=== PATIENT | female | born 1970 | race Caucasian/White ===

== ENCOUNTER 2019-02-22 10:06 | Inpatient (IN) | payer MEDICAID, OTHER ==
[~2019-02-22] VITALS: Ht 170.2 cm; Wt 67.9 kg
[~2019-02-22 10:06] MED LIST: FLUO10TA3 PO; INSU100V31 SQ; METF-445 PO; SIMV-260 PO
[2019-02-22] MEDS ORDERED: LISI-661 PO (10:14)
[2019-02-22] MEDS ORDERED: SODIUM CHLORIDE 0.9% 1,000 ML IV ONE (10:30)
[2019-02-22] MEDS ORDERED: INSULIN REGULAR, HUMAN 100 UNITS/ML IVP ONE (10:30)
[2019-02-22] MEDS ORDERED: ASPIRIN 81 MG CHEWABLE TABLET PO ONE (10:30)
[2019-02-22] MEDS ORDERED: NITROGLYCERIN 2% (1 GM=INCH) PACKET TP ONE (10:30)
[2019-02-22 10:31] LABS: GLUCOSE,POINT OF CARE 493 MG/DL (70-110)
[2019-02-22 11:30] LABS: BASOPHILS % (AUTO) 0.5 % (0.0-2.0); HEMATOCRIT 38.6 % (36-46); HEMOGLOBIN 12.8 g/dL (12.0-16.0); LYMPHOCYTES # (AUTO) 1.3 K/uL (1.0-4.8); LYMPHOCYTES % (AUTO) 20.3 % (22.0-44.0); MEAN CORPUSCULAR HEMOGLOBIN 27.2 pg (26.0-34.0); MEAN CORPUSCULAR HGB CONC 33.2 G/dL (31.0-37.0); MEAN CORPUSCULAR VOLUME 82 fL (80-100); MONOCYTES # (AUTO) 0.4 K/uL (0.1-1.0); NEUTROPHILS # (AUTO) 4.5 K/uL (1.8-7.7); NEUTROPHILS % (AUTO) 72.2 % (40.0-70.0); PLATELET COUNT (AUTO) 247 K/uL (150-450); RED BLOOD CELL COUNT(AUTO) 4.72 MIL/uL (4.00-5.20); RED CELL DISTRIBUTION WIDTH 13.6 % (11.5-14.5)
[2019-02-22 11:38] LABS: ANION GAP 11 mmol/L (8-16); CARBON DIOXIDE 26 mmol/L (22-29); CHLORIDE 98 mmol/L (98-107); CREATININE 1.05 mg/dL (0.60-1.30); GLOMERULAR FILTR. RATE CALC 56 mL/min (>60); GLUCOSE,RANDOM 393 mg/dL (70-110); POTASSIUM 3.6 mmol/L (3.5-5.1); SODIUM SERUM 135 mmol/L (136-145); UREA NITROGEN, BLOOD 26 mg/dL (7-18)
[2019-02-22 11:44] LABS: B-TYPE NATRIURETIC PEPTIDE 78 pg/mL (0-100)
[2019-02-22 11:49] LABS: ALANINE AMINOTRANSFERASE 33 U/L (12-78); ALBUMIN 3.6 g/dL (3.4-5.0); ALKALINE PHOSPHATASE 123 U/L (46-116); ASPARTATE AMINOTRANSFERASE 25 U/L (15-37); BILIRUBIN,TOTAL 0.3 mg/dL (0.1-1.0); HCG,QUANTITATIVE < 1 mIU/mL (0-6); TOTAL PROTEIN, SERUM 7.7 g/dL (6.4-8.2)
[2019-02-22] MEDS ORDERED: ONDANSETRON HCL 4 MG/2 ML VIAL IVP PRN (12:30)
[2019-02-22] MEDS ORDERED: DEXTROSE 50%-WATER 25 GM/50 ML SYRINGE IVP PRN (12:30)
[2019-02-22] MEDS ORDERED: ACETAMINOPHEN 325 MG TABLET PO PRN (12:30)
[2019-02-22 13:51] VITALS: BP 118/76
[2019-02-22 14:56] VITALS: BP 122/82
[2019-02-22] MEDS: INSULIN LISPRO 100 UNITS/ML SQ PRN ×2 (17:54→20:57)
[2019-02-22 19:17] LABS: APPEARANCE,URINE CLOUDY (CLEAR); BILIRUBIN,URINE NEGATIVE (NEGATIVE); GLUCOSE, URINE (UA) >=1000 mg/dL (NEGATIVE); KETONES,URINE NEGATIVE (NEGATIVE); LEUKOCYTE ESTERASE ,URINE LARGE (NEGATIVE); NITRATE,URINE NEGATIVE (NEGATIVE); OCCULT BLOOD,URINE SMALL (NEGATIVE); PROTEIN,URINE POS 1+ (NEGATIVE); UROBILINOGEN,URINE 0.2 mg/dL (<=1.0)
[2019-02-22 19:23] LABS: AMPHET/METH SCREEN,URINE POSITIVE (NEGATIVE); BARBITURATE SCREEN, URINE NEGATIVE (NEGATIVE); BENZODIAZEPINES SCREEN,URINE NEGATIVE (NEGATIVE); CANNABINOID SCREEN,URINE POSITIVE (NEGATIVE); COCAINE SCREEN,URINE NEGATIVE (NEGATIVE); METHADONE SCREEN, URINE NEGATIVE (NEGATIVE); OPIATE SCREEN,URINE NEGATIVE (NEGATIVE)
[2019-02-22 19:25] LABS: PHENCYCLIDINE SCREEN,URINE NEGATIVE (NEGATIVE)
[2019-02-22 19:34] VITALS: BP 145/82
[2019-02-22 20:10] LABS: BACTERIA,URINE Many /HPF (None Seen); SQUAMOUS EPITHELIAL CELL,UR Moderate /LPF (None Seen); WBC,URINE 51-100 /HPF (0-5)
[2019-02-23 00:07] VITALS: BP 111/57
[2019-02-23 05:45] VITALS: BP 138/85
[2019-02-23 05:55] LABS: GLUCOMETER DEV NAME(LOC) 5N.2; GLUCOSE,POINT OF CARE 251 MG/DL (70-110)
[2019-02-23 05:55] LABS: GLUCOMETER DEV NAME(LOC) 5N.2; GLUCOSE,POINT OF CARE 219 MG/DL (70-110)
[2019-02-23 08:06] VITALS: BP 111/66
[2019-02-23] MEDS ORDERED: HydrOXYzine PAMOATE 50 MG CAPSULE PO PRN (10:45)
[2019-02-23] MEDS ORDERED: IPRATROPIUM BROMIDE 0.5 MG/2.5 ML NEB SOLUTION NEB PRN (10:45)
[2019-02-23] MEDS ORDERED: BACLOFEN 10 MG TABLET PO PRN (10:45)
[2019-02-23] MEDS ORDERED: DICYCLOMINE HCL 10 MG CAPSULE PO PRN (10:45)
[2019-02-23] MEDS ORDERED: MAG HYDROX/AL HYDROX/SIMETH ES 30 ML SUSPENSION UDCUP PO PRN (10:45)
[2019-02-23] MEDS ORDERED: MAGNESIUM HYDROXIDE SUSPENSION 30 ML UDCUP PO PRN (10:45)
[2019-02-23] MEDS ORDERED: ONDANSETRON HCL 4 MG/2 ML VIAL IVP PRN (10:45)
[2019-02-23] MEDS ORDERED: LORazepam 1 MG TABLET PO PRN (10:45)
[2019-02-23] MEDS ORDERED: IBUPROFEN 600 MG TABLET PO PRN (10:45)
[2019-02-23] MEDS ORDERED: LOPERAMIDE HCL 2 MG/15 ML SUSPENSION UDCUP PO PRN (10:45)
[2019-02-23] MEDS ORDERED: CloNIDine HCL 0.1 MG TABLET PO PRN (10:45)
[2019-02-23] MEDS ORDERED: ZOLPIDEM TARTRATE 10 MG TABLET PO PRN (10:45)
[2019-02-23] MEDS ORDERED: TraZODone HCL 50 MG TABLET PO PRN (10:45)
[2019-02-23] MEDS ORDERED: ACETAMINOPHEN 325 MG TABLET PO PRN (10:45)
[2019-02-23 11:42] VITALS: BP 109/71
[2019-02-23] MEDS ORDERED: SODIUM CHLORIDE 0.9% 1,000 ML IV ONE (12:02)
[2019-02-23] MEDS: CefTRIAXone 1 GM/DEXTROSE 50 ML IV SCH (12:12)
[2019-02-23] MEDS: HYDROCODONE/ACETAMINOPHEN 5-325 MG TABLET PO PRN ×2 (12:13→20:46)
[2019-02-23] MEDS: PROMETHAZINE HCL 25 MG TABLET PO PRN (12:13)
[2019-02-23] MEDS: NITROGLYCERIN 2% (1 GM=INCH) PACKET TP SCH ×2 (12:13→17:32)
[2019-02-23 15:38] VITALS: BP 113/69
[2019-02-23] MEDS: CARVEDILOL 3.125 MG TABLET PO SCH ×2 (16:14→20:45)
[2019-02-23] MEDS: PHENAZOPYRIDINE HCL 200 MG TABLET PO SCH ×2 (16:14→20:46)
[2019-02-23] MEDS: MetFORMIN HCL 850 MG TABLET PO SCH (17:31)
[2019-02-23 20:29] VITALS: BP 106/54
[2019-02-23] MEDS: DOCUSATE SODIUM 100 MG CAPSULE PO SCH (20:45)
[2019-02-23] MEDS ORDERED: INSULIN REGULAR, HUMAN 100 UNITS/ML SQ SCH (21:00)
[2019-02-24] VITALS (8 sets, daily range): BP systolic 90–128; BP diastolic 50–75
[2019-02-24] MEDS: NITROGLYCERIN 2% (1 GM=INCH) PACKET TP SCH ×5 (00:24→23:35)
[2019-02-24] MEDS: ACETAMINOPHEN 325 MG TABLET PO PRN (06:06)
[2019-02-24 06:07] LABS: CHOL/HDL RATIO 3.9 (3.9-5.7)
[2019-02-24] MEDS: ASPIRIN 81 MG CHEWABLE TABLET PO SCH (08:25)
[2019-02-24] MEDS: CARVEDILOL 3.125 MG TABLET PO SCH ×3 (08:25→20:42)
[2019-02-24] MEDS: MetFORMIN HCL 850 MG TABLET PO SCH ×2 (08:25→18:16)
[2019-02-24] MEDS: DOCUSATE SODIUM 100 MG CAPSULE PO SCH ×2 (08:25→20:42)
[2019-02-24] MEDS: FLUoxetine HCL 10 MG CAPSULE PO SCH (08:25)
[2019-02-24] MEDS: PHENAZOPYRIDINE HCL 200 MG TABLET PO SCH ×3 (08:26→20:42)
[2019-02-24] MEDS: LISINOPRIL 10 MG TABLET PO SCH (08:26)
[2019-02-24] MEDS: SIMVASTATIN 20 MG TABLET PO SCH (08:26)
[2019-02-24] MEDS: CefTRIAXone 1 GM/DEXTROSE 50 ML IV SCH (11:37)
[2019-02-24 11:49] LABS: GLUCOMETER DEV NAME(LOC) 5S.1; GLUCOSE,POINT OF CARE 399 MG/DL (70-110)
[2019-02-24] MEDS: HYDROCODONE/ACETAMINOPHEN 5-325 MG TABLET PO PRN (12:18)
[2019-02-24] MEDS: PROMETHAZINE HCL 25 MG TABLET PO PRN (12:58)
[2019-02-24] MEDS ORDERED: INSULIN LISPRO 100 UNITS/ML SQ PRN (16:45)
[2019-02-24] MEDS ORDERED: DEXTROSE 50%-WATER 25 GM/50 ML SYRINGE IVP PRN ×2 (16:45→18:00)
[2019-02-24] MEDS ORDERED: INSULIN LISPRO 100 UNITS/ML SQ ONE (18:00)
[2019-02-24] MEDS: INSULIN LISPRO 100 UNITS/ML SQ PRN ×2 (18:17→21:25)
[2019-02-24 19:58] LABS: GLUCOMETER DEV NAME(LOC) 5N.2; GLUCOSE,POINT OF CARE 430 MG/DL (70-110)
[2019-02-24] MEDS: INSULIN GLARGINE,HUM.REC.ANLOG 100 UNITS/ML SQ SCH (21:00)
[2019-02-24 21:38] LABS: GLUCOMETER DEV NAME(LOC) 5S.2A; GLUCOSE,POINT OF CARE 442 MG/DL (70-110)
[2019-02-25] MEDS: HYDROCODONE/ACETAMINOPHEN 5-325 MG TABLET PO PRN ×4 (03:26→21:06)
[2019-02-25 03:31] LABS: GLUCOMETER DEV NAME(LOC) 5N.1; GLUCOSE,POINT OF CARE 57 MG/DL (70-110)
[2019-02-25 03:31] LABS: GLUCOMETER DEV NAME(LOC) 5N.1; GLUCOSE,POINT OF CARE 188 MG/DL (70-110)
[2019-02-25 03:31] LABS: GLUCOMETER DEV NAME(LOC) 5N.1; GLUCOSE,POINT OF CARE 212 MG/DL (70-110)
[2019-02-25 05:32] VITALS: BP 111/68
[2019-02-25] MEDS: NITROGLYCERIN 2% (1 GM=INCH) PACKET TP SCH ×3 (05:43→17:18)
[2019-02-25] MEDS: INSULIN LISPRO 100 UNITS/ML SQ PRN ×4 (05:49→21:06)
[2019-02-25 07:32] LABS: BASOPHILS % (AUTO) 0.4 % (0.0-2.0); EOSINOPHILS % (AUTO) 2.1 % (1.0-6.0); HEMATOCRIT 36.4 % (36-46); LYMPHOCYTES # (AUTO) 1.8 K/uL (1.0-4.8); LYMPHOCYTES % (AUTO) 24.7 % (22.0-44.0); MEAN CORPUSCULAR HEMOGLOBIN 27.2 pg (26.0-34.0); MEAN CORPUSCULAR HGB CONC 32.8 G/dL (31.0-37.0); MEAN CORPUSCULAR VOLUME 83 fL (80-100); MONOCYTES # (AUTO) 0.6 K/uL (0.1-1.0); MONOCYTES % (AUTO) 8.6 % (2.0-9.0); NEUTROPHILS # (AUTO) 4.7 K/uL (1.8-7.7); NEUTROPHILS % (AUTO) 64.2 % (40.0-70.0); PLATELET COUNT (AUTO) 238 K/uL (150-450); RED CELL DISTRIBUTION WIDTH 13.6 % (11.5-14.5)
[2019-02-25] MEDS: CARVEDILOL 3.125 MG TABLET PO SCH ×2 (07:44→20:57)
[2019-02-25] MEDS: DOCUSATE SODIUM 100 MG CAPSULE PO SCH ×2 (07:44→20:57)
[2019-02-25] MEDS: PHENAZOPYRIDINE HCL 200 MG TABLET PO SCH ×3 (07:44→20:56)
[2019-02-25] MEDS: FLUoxetine HCL 10 MG CAPSULE PO SCH (07:44)
[2019-02-25] MEDS: ASPIRIN 81 MG CHEWABLE TABLET PO SCH (07:44)
[2019-02-25] MEDS: LISINOPRIL 10 MG TABLET PO SCH (07:45)
[2019-02-25] MEDS: SIMVASTATIN 20 MG TABLET PO SCH (07:45)
[2019-02-25] MEDS: MetFORMIN HCL 850 MG TABLET PO SCH (07:48)
[2019-02-25 07:49] VITALS: BP 108/66
[2019-02-25 08:04] LABS: ALANINE AMINOTRANSFERASE 26 U/L (12-78); ALBUMIN 2.9 g/dL (3.4-5.0); ALKALINE PHOSPHATASE 80 U/L (46-116); ANION GAP 9 mmol/L (8-16); ASPARTATE AMINOTRANSFERASE 32 U/L (15-37); BILIRUBIN,TOTAL 0.3 mg/dL (0.1-1.0); CALCIUM, TOTAL 9.1 mg/dL (8.8-10.5); CARBON DIOXIDE 28 mmol/L (22-29); CHLORIDE 100 mmol/L (98-107); GLOMERULAR FILTR. RATE CALC > 60 mL/min (>60); GLUCOSE,RANDOM 192 mg/dL (70-110); POTASSIUM 3.9 mmol/L (3.5-5.1); SODIUM SERUM 137 mmol/L (136-145); TOTAL PROTEIN, SERUM 6.8 g/dL (6.4-8.2)
[2019-02-25 08:09] LABS: UREA NITROGEN, BLOOD 26 mg/dL (7-18)
[2019-02-25 11:11] VITALS: BP 122/80
[2019-02-25 12:00] VITALS: BP 122/80
[2019-02-25] MEDS: CefoTEtan DISOD 1 GM/DEXTROSE 50 ML IV SCH (12:21)
[2019-02-25] MEDS: MetFORMIN HCL 500 MG TABLET PO SCH (17:03)
[2019-02-25 19:41] VITALS: BP 116/63
[2019-02-25] MEDS: INSULIN GLARGINE,HUM.REC.ANLOG 100 UNITS/ML SQ SCH (21:00)
[2019-02-25 21:11] LABS: GLUCOMETER DEV NAME(LOC) 5N.2; GLUCOSE,POINT OF CARE 246 MG/DL (70-110)
[2019-02-25 21:11] LABS: GLUCOMETER DEV NAME(LOC) 5N.2; GLUCOSE,POINT OF CARE 272 MG/DL (70-110)
[2019-02-26] VITALS (8 sets, daily range): BP systolic 94–128; BP diastolic 58–76
[2019-02-26 00:01] LABS: GLUCOMETER DEV NAME(LOC) 5S.1; GLUCOSE,POINT OF CARE 133 MG/DL (70-110)
[2019-02-26 00:01] LABS: GLUCOMETER DEV NAME(LOC) 5S.1; GLUCOSE,POINT OF CARE 173 MG/DL (70-110)
[2019-02-26 00:01] LABS: GLUCOMETER DEV NAME(LOC) 5N.1; GLUCOSE,POINT OF CARE 148 MG/DL (70-110)
[2019-02-26] MEDS: CefoTEtan DISOD 1 GM/DEXTROSE 50 ML IV SCH ×2 (00:24→12:45)
[2019-02-26] MEDS: MORPHINE SULFATE 2 MG/ML SYRINGE IVP PRN ×4 (01:03→17:12)
[2019-02-26] MEDS: NITROGLYCERIN 2% (1 GM=INCH) PACKET TP SCH ×4 (06:00→17:00)
[2019-02-26] MEDS: INSULIN LISPRO 100 UNITS/ML SQ PRN ×4 (06:35→21:07)
[2019-02-26] MEDS: DOCUSATE SODIUM 100 MG CAPSULE PO SCH ×2 (08:08→20:59)
[2019-02-26] MEDS: CARVEDILOL 3.125 MG TABLET PO SCH ×2 (08:08→21:00)
[2019-02-26] MEDS: SIMVASTATIN 20 MG TABLET PO SCH (08:08)
[2019-02-26] MEDS: PHENAZOPYRIDINE HCL 200 MG TABLET PO SCH ×3 (08:09→21:00)
[2019-02-26] MEDS: FLUoxetine HCL 10 MG CAPSULE PO SCH (08:09)
[2019-02-26] MEDS: ASPIRIN 81 MG CHEWABLE TABLET PO SCH (08:09)
[2019-02-26] MEDS: MetFORMIN HCL 500 MG TABLET PO SCH ×2 (08:09→17:11)
[2019-02-26] MEDS: HYDROCODONE/ACETAMINOPHEN 5-325 MG TABLET PO PRN (10:46)
[2019-02-26] MEDS: LISINOPRIL 10 MG TABLET PO SCH (12:44)
[2019-02-26] MEDS ORDERED: SODIUM CHLORIDE 0.9% 50 ML ONE (12:46)
[2019-02-26] MEDS: ACETAMINOPHEN 325 MG TABLET PO PRN (15:31)
[2019-02-26 19:46] LABS: GLUCOMETER DEV NAME(LOC) 5N.1; GLUCOSE,POINT OF CARE 189 MG/DL (70-110)
[2019-02-26 19:46] LABS: GLUCOMETER DEV NAME(LOC) 5N.1; GLUCOSE,POINT OF CARE 344 MG/DL (70-110)
[2019-02-26 20:20] LABS: GLUCOMETER DEV NAME(LOC) 5S.2A; GLUCOSE,POINT OF CARE 233 MG/DL (70-110)
[2019-02-26] MEDS: INSULIN GLARGINE,HUM.REC.ANLOG 100 UNITS/ML SQ SCH (21:07)
[2019-02-27 00:28] VITALS: BP 90/54
[2019-02-27] MEDS: NITROGLYCERIN 2% (1 GM=INCH) PACKET TP SCH ×3 (00:30→06:00)
[2019-02-27] MEDS: CefoTEtan DISOD 1 GM/DEXTROSE 50 ML IV SCH (00:31)
[2019-02-27 00:54] LABS: GLUCOMETER DEV NAME(LOC) 5S.1; GLUCOSE,POINT OF CARE 226 MG/DL (70-110)
[2019-02-27 00:55] LABS: GLUCOMETER DEV NAME(LOC) 5S.1; GLUCOSE,POINT OF CARE 75 MG/DL (70-110)
[2019-02-27 00:55] LABS: GLUCOMETER DEV NAME(LOC) 5S.1; GLUCOSE,POINT OF CARE 137 MG/DL (70-110)
[2019-02-27] MEDS: HYDROCODONE/ACETAMINOPHEN 5-325 MG TABLET PO PRN (04:26)
[2019-02-27 04:42] VITALS: BP 94/52
[2019-02-27] MEDS ORDERED: CARV3.1262 PO (04:52)
[2019-02-27] MEDS ORDERED: ASPI81TA39 PO (04:53)
[2019-02-27] MEDS ORDERED: FLUO10TA3 PO (04:53)
[2019-02-27] MEDS ORDERED: INSLAN SQ (04:54)
[2019-02-27] MEDS ORDERED: SIMV20TA2 PO (05:03)
[2019-02-27] MEDS ORDERED: AMOX250S73 PO (05:03)
[2019-02-27] MEDS ORDERED: METF-444 PO (05:08)
[2019-02-27] MEDS: INSULIN LISPRO 100 UNITS/ML SQ PRN (06:26)
[2019-02-27] MEDS ORDERED: AMOX1TAB16 PO (08:06)
[2019-02-27] MEDS: LISINOPRIL 10 MG TABLET PO SCH ×2 (08:17→08:39)
[2019-02-27] MEDS: SIMVASTATIN 20 MG TABLET PO SCH (08:18)
[2019-02-27] MEDS: FLUoxetine HCL 10 MG CAPSULE PO SCH (08:18)
[2019-02-27] MEDS: PHENAZOPYRIDINE HCL 200 MG TABLET PO SCH (08:18)
[2019-02-27] MEDS: CARVEDILOL 3.125 MG TABLET PO SCH ×2 (08:18→08:49)
[2019-02-27] MEDS: MetFORMIN HCL 500 MG TABLET PO SCH (08:18)
[2019-02-27] MEDS: DOCUSATE SODIUM 100 MG CAPSULE PO SCH (08:18)
[2019-02-27] MEDS: ASPIRIN 81 MG CHEWABLE TABLET PO SCH (08:18)
[2019-02-27 08:44] VITALS: BP 94/58
[2019-02-27 09:50] LABS: GLUCOMETER DEV NAME(LOC) 5S.1; GLUCOSE,POINT OF CARE 176 MG/DL (70-110)
== END 2019-02-27 09:20 | disposition home or self-care (01) | DRG 690 ==
LOC: EMS 10:08 → 5S 13:05
PROVIDERS: ADMIT Hospitalist; ATTEND Hospitalist
DX: N39.0 Urinary tract infection, site not specified (principal); E44.0 Moderate protein-calorie malnutrition; I10 Essential (primary) hypertension; I25.10 Atherosclerotic heart disease of native coronary artery without angina pectoris; R07.89 Other chest pain; E78.5 Hyperlipidemia, unspecified; F15.90 Other stimulant use, unspecified, uncomplicated; I25.5 Ischemic cardiomyopathy; F19.10 Other psychoactive substance abuse, uncomplicated; E11.65 Type 2 diabetes mellitus with hyperglycemia; Z16.19 Resistance to other specified beta lactam antibiotics; Z95.1 Presence of aortocoronary bypass graft; Z79.4 Long term (current) use of insulin; Z79.899 Other long term (current) drug therapy; Z68.23 Body mass index [BMI] 23.0-23.9, adult
CPT/HCPCS: 87086; 93005; 93306; 96361; 96374; J0696; J1815; J2270; J2405; J3490; J7030; J7050